=== PATIENT | female | born 1975 | race Caucasian/White ===

== ENCOUNTER 2018-05-20 09:30 | Outpatient (RCR) | payer SELFPAY | END 2018-05-21 09:31 | disposition home or self-care (01) | LOC: PT 09:30 | PROVIDERS: Visit Provider Psychiatry & Neurology Neurology | DX: M54.2 Cervicalgia (principal); M54.5 Low back pain | CPT/HCPCS: 97010; 97012; 97014; 97110; 97140; 97163; G0283 ==